=== PATIENT | female | born 1955 | race Caucasian/White ===

== ENCOUNTER → 2017-08-18 08:26 | Outpatient (CLI) | payer OTHER, MEDICAID, SELFPAY ==
[2017-08-18 09:33] LABS: Add Manual Diff / Slide Review NO; Basophils Percent Auto 0.6 % (0-2); Eosinophils Percent Auto 3.8 % (2-4); Hematocrit 39.6 % (36-46); Hemoglobin 13.2 g/dL (12.0-16.0); Lymphocytes Percent Auto 37.2 % (25-40); Mean Corpuscular HGB Conc 33.4 % (30-36); Mean Corpuscular Hemoglobin 28.4 PG (26-34); Mean Corpuscular Volume 85.1 fL (80-100); Monocytes Percent Auto 9.6 % (3-14); Neutrophils Absolute Auto 3100 /uL (3000-5900); Neutrophils Percent Auto 48.8 % (50-75); Platelet Count 222 X10^3/uL (150-400); Red Blood Cell Count 4.65 X10^6/uL (4.0-5.2); Red Cell Distribution Width 14.3 % (11.6-14.8); White Blood Cell Count 6.3 X10^3/uL (4.5-11.0)
[2017-08-18 09:49] LABS: Alanine Aminotransferase 28 IU/L (9-52); Albumin 4.5 g/dL (3.5-5.0); Albumin Globulin Ratio 1.3 (1.0-2.8); Alkaline Phosphatase 70 U/L (38-126); Aspartate Aminotransferase 29 IU/L (14-36); BUN Creatinine Ratio 16.3 (6-22); Bilirubin Total 0.6 mg/dL (0.2-1.3); Blood Urea Nitrogen 13 mg/dL (7-17); Calcium 9.8 mg/dL (8.4-10.2); Carbon Dioxide 32 mmol/L (22-32); Chloride 102 mmol/L (98-107); Cholesterol 196 mg/dL (140-199); Estimated Glomerular Filt Rate > 60.0 mL/min (>60); Globulin 3.4 g/dL (1.7-4.1); Glucose 90 mg/dL (80-110); HDL Cholesterol 67 mg/dL (40-60); HEMOLYSIS < 15 (0-50); LDL Cholesterol Calculated 120 mg/dL (<100); Potassium 4.7 mmol/L (3.4-5.1); Sodium 142 mmol/L (137-145); Total Protein 7.9 g/dL (6.3-8.2); Triglycerides 46 mg/dL (35-150)
[2017-08-18 09:51] LABS: HEMOLYSIS < 15 (0-50); Iron 74 ug/dL (37-170)
[2017-08-18 09:56] LABS: Hemoglobin A1C% w Est Avg Glu 5.6 % (4.0-6.0)
[2017-08-18 10:02] LABS: Percent Iron Saturation 22 % (15-50); Total Iron Binding Capacity 331 ug/mL (265-497); Transferrin 260 mg/dL (206-381)
[2017-08-18 10:05] LABS: Free T4, Direct Thyroxine 1.04 ng/dL (0.78-2.19)
[2017-08-18 10:18] LABS: Thyroid Stimulating Hormone 3.58 uIU/mL (0.47-4.68)
[2017-08-18 10:22] LABS: Ferritin 46.6 ng/mL (11.1-264)
== END ==
PROVIDERS: PCP Physician Assistant; Visit Provider Physician Assistant
DX: R53.83 Other fatigue (principal); Z82.49 Family history of ischemic heart disease and other diseases of the circulatory system; Z83.2 Family history of diseases of the blood and blood-forming organs and certain disorders involving the immune mechanism; Z82.3 Family history of stroke
CPT/HCPCS: 36415; 80053; 80061; 82728; 83036; 83540; 83550; 84439; 84443; 85025

== ENCOUNTER → 2017-10-13 08:59 | Outpatient (CLI) | payer OTHER, MEDICAID, SELFPAY ==
--- NOTE | 2017-10-13 09:00 | DI.RAD.S_ITS ---
PROCEDURE: XR CHEST 2V INDICATIONS: cough TECHNIQUE: 2 views of the chest were acquired. COMPARISON: None. FINDINGS: Surgical changes and devices: None. Lungs and pleura: No pleural effusions or pneumothorax. Lungs are clear. Mediastinum: Mediastinal contours are normal. Heart size is normal. Bones and chest wall: No suspicious bony abnormalities. Soft tissues appear unremarkable. IMPRESSION: No acute cardiopulmonary abnormality Dictated by: Obie Rogers M.D. on 10/13/2017 at 9:19 Approved by: Obie Rogers M.D. on 10/13/2017 at 9:20
== END ==
PROVIDERS: Family Provider Physician Assistant; PCP Physician Assistant; Visit Provider Physician Assistant
DX: R05 Cough (principal)
CPT/HCPCS: 71046

== ENCOUNTER 2024-08-16 11:30 | Outpatient (RCR) | payer MEDICARE, SELFPAY ==
--- NOTE | 2024-06-06 16:44 | PT.OIE ---
Current Diagnoses Pelvic muscle wasting (06/06/24) Other female genital prolapse (06/06/24) Urgency of urination (06/06/24) Past Medical History (This Medical Record has been edited. Action required.) Dermatitis (Unknown) Herpes simplex (Unknown) Hyperlipidemia (Unknown) Osteopenia (~2012) Vitamin D deficiency (Unknown) Visit Care Team Role Provider Type Yue Al DO Family Provider Non-Staff Primary Care Provider Specialty: Medical Address: [address] [place] [address], [phone] Email: Linda Allen MD Attending Provider Physician Referring Provider Specialty: Gynecology IT SYSTEMS MANAGER Obstetrics Address: [address] [place] [address], [id number] Email: [email or web address] Physical Therapy Initial Evaluation PT-OP-A Visit Information Start: 06/06/24 09:43 Freq: Status: Active Protocol: Document 06/06/24 09:45 [facility] (Rec: 06/06/24 16:44 [facility] [id number]) Out-Patient Physical Therapy Visit Information Visit Information Visit Type Initial Evaluation Visit Start Time 09:00 Visit Stop Time 09:45 Visit Number 1 Evaluation Information Evaluation Date 06/06/24 PT-OP-B Current Condition Start: 06/06/24 09:43 Freq: Status: Active Protocol: Document 06/06/24 09:47 [facility] (Rec: 06/06/24 10:08 [facility] [id number]) Current Condition History of Current Condition Onset Date 2 years ago Current Complaints pelvic organ prolapse History of Current Condition pt notes she has started vaginal estrogen x 2 weeks and she can tell a difference already two years ago she felt like she had a UTI and she went and got checked but it wasnt a UTI she was evaluated and it was noted she had a small bladder prolapse. Symptoms then seemed to decrease. Then again this last year she began feeling symptoms again of UTI and she was diagnosed with a prolapse She does functional fitness at the [facility] and yoga but has currently stopped her yoga as she feels she needs increased strenght for this history of 4 vaginal childbirths. S Future Testing and Treatments Planned he PT-OP-C Subjective Start: 06/06/24 09:43 Freq: Status: Active Protocol: Document 06/06/24 09:45 [facility] (Rec: 06/06/24 16:44 [facility] [id number]) Patient Questionnaires Pelvic Pain and Urgency/Frequency Patient Symptom Scale Pelvic Pain Score 1 PT-OP-F Manual Assessment Start: 06/06/24 09:43 Freq: Status: Active Protocol: Document 06/06/24 09:45 [facility] (Rec: 06/06/24 16:44 [facility] [id number]) Manual Assessments Soft Tissue Assessment Soft Tissue Mobility Assessment guarding at the left lateral wall of the levator ani PT-OP-I Pelvic Floor Start: 06/06/24 09:43 Freq: Status: Active Protocol: Document 06/06/24 09:45 [facility] (Rec: 06/06/24 16:44 [facility] [id number]) Pelvic Floor Assessment Urine Pelvic Floor Surgery No Urinary Symptoms Urge Sensation,Prolapse, Incomplete Emptying Leakage Size Small Leakage Cause Cough,Urge Other Leakage Causes small amounts of leakage with strong cough or sneeze or sudden urge Pelvic Clock Pelvic Clock 12-3 Atrophy Pelvic Clock 3-6 Atrophy,Tightness Pelvic Clock 6-9 Atrophy Pelvic Clock 9-12 Atrophy Prolapse Cystocele Grade 2 Rectocele Grade 2 Contraction Ability Voluntary Contraction Weak Voluntary Relaxation Weak Manual Muscle Testing Left 2 Manual Muscle Testing Right 2 Manual Muscle Testing Anterior 1 Manual Muscle Testing Posterior 2 Muscle Endurance (Seconds) 5 Comments Pelvic Floor Comments pt has difficulty relaxing the left lateral wall of the levator ani PT-OP-M Strength Start: 06/06/24 09:43 Freq: Status: Active Protocol: Document 06/06/24 09:45 [facility] (Rec: 06/06/24 16:44 [facility] [id number]) Trunk Strength Trunk Manual Muscle Testing Core Stabilization pt is able to facilitate a contraction of the TA is supine PT-OP-Q Treatments Start: 06/06/24 09:47 Freq: Status: Active Protocol: Document 06/06/24 09:45 [facility] (Rec: 06/06/24 16:44 [facility] [id number]) Therapeutic Exercises Supine Exercises modified squat stretch Reps/Minutes hold 1 min happy baby stretch Reps/Minutes hold 1 min hookling clam shells with Theraband Reps/Minutes level 2 2 x 10 reps supine ball squeeze with pelvic floor contraction Reps/Minutes 10 reps holding 5 seconds and resting 10 seconds PT-OP-T Assessment and Plan Start: 06/06/24 09:43 Freq: Status: Active Protocol: Document 06/06/24 09:45 [facility] (Rec: 06/06/24 16:44 [facility] [id number]) Physical Therapy Assessment Rehab Potential Rehabilitation Potential Excellent Evaluation Complexity Number of Personal Factors/Comorbidities 1-2 Number of Body Systems Impaired 3 Clinical Presentation at Evaluation Evolving Impairments Impairments Activity Tolerance,Functional Activities,Soft Tissue Mobility,Strength,Tone Goals 3 Impairment patient lacks a home program for pelvic floor strengthening . General Assembler Installer Goal (LTG) Dee is independent with a HEP for pelvic floor strengthening LTG Duration 8 weeks 2 Impairment Decreased pelvic floor endurance Short Term Goal (STG) Dee is able to sustain a pelvic floor contraction in supine x 10 seconds STG Duration 5 weeks General Assembler Installer Goal (LTG) Dee is able to sustain a pelvic floor contraction in standing x 5 seconds LTG Duration 8 weeks 1 Impairment pelvic floor weakness General Assembler Installer Goal (LTG) Dee presents with overall improved strength of the pelvic floor and has improved recruitment of the anterior wall of the levator ani. LTG Duration 8 weeks Assessment Summary Assessment Dee is a 68 year old female referred to PT for pelvic floor strengthening with cystocele and rectocele and vaginal atrophy. She has been using estrogen cream the past 2 weeks and does feel like this has really helped her tissues. She notes it is not something she wishes to continue using for long duration. She describes symptoms of UTI but when cultured there is no infection . Dee is considering surgery but would like to try strengthening first. With exam there is vaginal atrophy present. She is able to contract all dover of the levator ani but is weakest in the anterior wall. She tests 1/5 MMT for the anterior wall and 2/5 MMT for lateral and posterior dover. She has difficulty relaxing the left lateral wall of the levator ani and she notes she has had hip tightness on the left side . She is limited with the endurance holds of her pelvic floor. Dee is a good candidate for PT working towards improved strength and endurance of the pelvic floor for improved support of the pelvic organs. Physical Therapy Plan Frequency and Duration Frequency of Treatment 1x/Week Duration of treatment (weeks) 8 Plan of Care Start Date 06/06/24 Plan of Care End Date 08/01/24 Therapeutic Interventions Therapeutic Interventions Home Exercise Program, Neuromuscular Re-education, Patient/Caregiver Education, Self-Care/Home Management, Therapeutic Exercises Modalities Biofeedback Next Visit Focus/Plan Next Note Type Treatment Note Next Visit Plan pelvic floor strengthen and endurance training
--- NOTE | 2024-06-06 16:45 | PT.OPPOC ---
Physical, Occupational & Speech Therapy At [facility] Current Diagnoses Pelvic muscle wasting (06/06/24) Other female genital prolapse (06/06/24) Urgency of urination (06/06/24) Visit Care Team Role Provider Type Yue Al DO Family Provider Non-Staff Primary Care Provider Specialty: Medical Address: [address] [place] [address], [phone] Email: Linda Allen MD Attending Provider Physician Referring Provider Specialty: Gynecology BRIEFCASE SEWER Obstetrics Address: [address] [place] [address], [id number] Email: [email or web address] Plan Of Care PT-OP-B Current Condition Start: 06/06/24 09:43 Freq: Status: Active Protocol: Document 06/06/24 09:47 [facility] (Rec: 06/06/24 10:08 [facility] [id number]) Current Condition History of Current Condition Onset Date 2 years ago Current Complaints pelvic organ prolapse History of Current Condition pt notes she has started vaginal estrogen x 2 weeks and she can tell a difference already two years ago she felt like she had a UTI and she went and got checked but it wasn't a UTI she was evaluated and it was noted she had a small bladder prolapse. Symptoms then seemed to decrease. Then again this last year she began feeling symptoms again of UTI and she was diagnosed with a prolapse She does functional fitness at the [facility] and yoga but has currently stopped her yoga as she feels she needs increased strength for this history of 4 vaginal childbirths. S Future Testing and Treatments Planned he PT-OP-T Assessment and Plan Start: 06/06/24 09:43 Freq: Status: Active Protocol: Document 06/06/24 09:45 [facility] (Rec: 06/06/24 16:44 [facility] [id number]) Physical Therapy Assessment Rehab Potential Rehabilitation Potential Excellent Evaluation Complexity Number of Personal Factors/Comorbidities 1-2 Number of Body Systems Impaired 3 Clinical Presentation at Evaluation Evolving Impairments Impairments Activity Tolerance,Functional Activities,Soft Tissue Mobility,Strength,Tone Goals 3 Impairment patient lacks a home program for pelvic floor strengthening . Fish Seiner Goal (LTG) Dee is independent with a HEP for pelvic floor strengthening LTG Duration 8 weeks 2 Impairment Decreased pelvic floor endurance Short Term Goal (STG) Dee is able to sustain a pelvic floor contraction in supine x 10 seconds STG Duration 5 weeks Fish Seiner Goal (LTG) Dee is able to sustain a pelvic floor contraction in standing x 5 seconds LTG Duration 8 weeks 1 Impairment pelvic floor weakness Fish Seiner Goal (LTG) Dee presents with overall improved strength of the pelvic floor and has improved recruitment of the anterior wall of the levator ani. LTG Duration 8 weeks Assessment Summary Assessment Dee is a 68 year old female referred to PT for pelvic floor strengthening with cystocele and rectocele and vaginal atrophy. She has been using estrogen cream the past 2 weeks and does feel like this has really helped her tissues. She notes it is not something she wishes to continue using for long duration. She describes symptoms of UTI but when cultured there is no infection . Dee is considering surgery but would like to try strengthening first. With exam there is vaginal atrophy present. She is able to contract all dover of the levator ani but is weakest in the anterior wall. She tests 1/5 MMT for the anterior wall and 2/5 MMT for lateral and posterior dover. She has difficulty relaxing the left lateral wall of the levator ani and she notes she has had hip tightness on the left side . She is limited with the endurance holds of her pelvic floor. Dee is a good candidate for PT working towards improved strength and endurance of the pelvic floor for improved support of the pelvic organs. Physical Therapy Plan Frequency and Duration Frequency of Treatment 1x/Week Duration of treatment (weeks) 8 Plan of Care Start Date 06/06/24 Plan of Care End Date 08/01/24 Therapeutic Interventions Therapeutic Interventions Home Exercise Program, Neuromuscular Re-education, Patient/Caregiver Education, Self-Care/Home Management, Therapeutic Exercises Modalities Biofeedback Next Visit Focus/Plan Next Note Type Treatment Note Next Visit Plan pelvic floor strengthen and endurance training Plan of Care Dates Plan of Care Start Date 06/06/24 Plan of Care End Date 08/01/24 Electronically Signed by: Sharon Keys, PT 06/06/24 [id number] If you are in agreement with this Plan of Care, please return a signed and dated copy. I have reviewed this Plan of Care and certify that the skilled therapy services above are required to meet the patient?s needs. Physician Signature Date Printed Name and Credentials Clinical Instructor Signature Printed Name and Credentials
--- NOTE | 2024-06-13 16:16 | PT.OTN ---
Current Diagnoses Pelvic muscle wasting (06/13/24) Other female genital prolapse (06/13/24) Urgency of urination (06/13/24) Physical Therapy Treatment Note PT-OP-A Visit Information Start: 06/06/24 09:43 Freq: Status: Active Protocol: Document 06/13/24 09:46 [facility] (Rec: 06/13/24 10:33 [facility] [id number]) Out-Patient Physical Therapy Visit Information Visit Information Visit Type Treatment Note Visit Start Time 09:45 Visit Stop Time 10:30 Visit Number 2 Evaluation Information Evaluation Date 06/06/24 PT-OP-B Current Condition Start: 06/06/24 09:43 Freq: Status: Active Protocol: Document 06/06/24 09:47 [facility] (Rec: 06/06/24 10:08 [facility] [id number]) Current Condition History of Current Condition Onset Date 2 years ago Current Complaints pelvic organ prolapse History of Current Condition pt notes she has started vaginal estrogen x 2 weeks and she can tell a difference already two years ago she felt like she had a UTI and she went and got checked but it wasnt a UTI she was evaluated and it was noted she had a small bladder prolapse. Symptoms then seemed to decrease. Then again this last year she began feeling symptoms again of UTI and she was diagnosed with a prolapse She does functional fitness at the [facility] and yoga but has currently stopped her yoga as she feels she needs increased strenght for this history of 4 vaginal childbirths. S Future Testing and Treatments Planned he PT-OP-C Subjective Start: 06/06/24 09:43 Freq: Status: Active Protocol: Document 06/13/24 09:46 [facility] (Rec: 06/13/24 10:33 [facility] [id number]) OP-PT Subjective Patient Comments Patient Comments pt notes that her left hip is tighter too and she has been doing her exercises at home trying to work on the relaxation as much as the contraction PT-OP-F Manual Assessment Start: 06/06/24 09:43 Freq: Status: Active Protocol: Document 06/06/24 09:45 [facility] (Rec: 06/06/24 16:44 [facility] [id number]) Manual Assessments Soft Tissue Assessment Soft Tissue Mobility Assessment guarding at the left lateral wall of the levator ani PT-OP-I Pelvic Floor Start: 06/06/24 09:43 Freq: Status: Active Protocol: Document 06/06/24 09:45 [facility] (Rec: 06/06/24 16:44 [facility] [id number]) Pelvic Floor Assessment Urine Pelvic Floor Surgery No Urinary Symptoms Urge Sensation,Prolapse, Incomplete Emptying Leakage Size Small Leakage Cause Cough,Urge Other Leakage Causes small amounts of leakage with strong cough or sneeze or sudden urge Pelvic Clock Pelvic Clock 12-3 Atrophy Pelvic Clock 3-6 Atrophy,Tightness Pelvic Clock 6-9 Atrophy Pelvic Clock 9-12 Atrophy Prolapse Cystocele Grade 2 Rectocele Grade 2 Contraction Ability Voluntary Contraction Weak Voluntary Relaxation Weak Manual Muscle Testing Left 2 Manual Muscle Testing Right 2 Manual Muscle Testing Anterior 1 Manual Muscle Testing Posterior 2 Muscle Endurance (Seconds) 5 Comments Pelvic Floor Comments pt has difficulty relaxing the left lateral wall of the levator ani PT-OP-M Strength Start: 06/06/24 09:43 Freq: Status: Active Protocol: Document 06/06/24 09:45 [facility] (Rec: 06/06/24 16:44 [facility] [id number]) Trunk Strength Trunk Manual Muscle Testing Core Stabilization pt is able to facilitate a contraction of the TA is supine PT-OP-Q Treatments Start: 06/06/24 09:47 Freq: Status: Active Protocol: Document 06/13/24 09:46 [facility] (Rec: 06/13/24 10:33 [facility] [id number]) Therapeutic Exercises Supine Exercises pelvic floor isolations Reps/Minutes 10 reps holding 10 sec and realx x10 Comments average 3.6 uv 8 uv max modified squat stretch Reps/Minutes hold 1 min happy baby stretch Reps/Minutes hold 1 min hookling clam shells with Theraband Reps/Minutes level 2 2 x 10 reps supine ball squeeze with pelvic floor contraction Supine Exercise Name pt able to feel the front of her pelvic floor Reps/Minutes 10 sec on 10 sec off 10 reps Comments average 9.2 and max of 17.8 PT-OP-T Assessment and Plan Start: 06/06/24 09:43 Freq: Status: Active Protocol: Document 06/13/24 16:10 [facility] (Rec: 06/13/24 16:15 [facility] [id number]) Physical Therapy Assessment Assessment Summary Assessment Dee was able to do the EMG biofeedback today and was able to demonstrate relaxing to baseline, she presents with limited pelvic floor endurance and would benefit from continued PT focus on pelvic floor strengthening and endurance training Physical Therapy Plan Frequency and Duration Frequency of Treatment 1x/Week Duration of treatment (weeks) 8 Plan of Care Start Date 06/06/24 Plan of Care End Date 08/01/24 Therapeutic Interventions Therapeutic Interventions Home Exercise Program, Neuromuscular Re-education, Patient/Caregiver Education, Self-Care/Home Management, Therapeutic Exercises Modalities Biofeedback Next Visit Focus/Plan Next Note Type Treatment Note Next Visit Plan review all exercises and continue with pelvic floor strength and endurance training
--- NOTE | 2024-06-20 16:34 | PT.OTN ---
Current Diagnoses Pelvic muscle wasting (06/20/24) Other female genital prolapse (06/20/24) Urgency of urination (06/20/24) Physical Therapy Treatment Note PT-OP-A Visit Information Start: 06/06/24 09:43 Freq: Status: Active Protocol: Document 06/20/24 09:46 [facility] (Rec: 06/20/24 10:43 [facility] [id number]) Out-Patient Physical Therapy Visit Information Visit Information Visit Type Treatment Note Visit Start Time 09:45 Visit Stop Time 10:30 Visit Number 3 PT-OP-B Current Condition Start: 06/06/24 09:43 Freq: Status: Active Protocol: Document 06/06/24 09:47 [facility] (Rec: 06/06/24 10:08 [facility] [id number]) Current Condition History of Current Condition Onset Date 2 years ago Current Complaints pelvic organ prolapse History of Current Condition pt notes she has started vaginal estrogen x 2 weeks and she can tell a difference already two years ago she felt like she had a UTI and she went and got checked but it wasnt a UTI she was evaluated and it was noted she had a small bladder prolapse. Symptoms then seemed to decrease. Then again this last year she began feeling symptoms again of UTI and she was diagnosed with a prolapse She does functional fitness at the [facility] and yoga but has currently stopped her yoga as she feels she needs increased strenght for this history of 4 vaginal childbirths. S Future Testing and Treatments Planned he PT-OP-C Subjective Start: 06/06/24 09:43 Freq: Status: Active Protocol: Document 06/20/24 09:46 [facility] (Rec: 06/20/24 10:43 [facility] [id number]) OP-PT Subjective Patient Comments Patient Comments pt notes she had a episode on wednesday when she was at lunch with a friend and went to use the bathroom that as she got close to the toilet she felt that she wasn't going to make it to the toilet in time, it happened 3 times that day but it hasn't happened since. PT-OP-F Manual Assessment Start: 06/06/24 09:43 Freq: Status: Active Protocol: Document 06/06/24 09:45 [facility] (Rec: 06/06/24 16:44 [facility] [id number]) Manual Assessments Soft Tissue Assessment Soft Tissue Mobility Assessment guarding at the left lateral wall of the levator ani PT-OP-I Pelvic Floor Start: 06/06/24 09:43 Freq: Status: Active Protocol: Document 06/06/24 09:45 [facility] (Rec: 06/06/24 16:44 [facility] [id number]) Pelvic Floor Assessment Urine Pelvic Floor Surgery No Urinary Symptoms Urge Sensation,Prolapse, Incomplete Emptying Leakage Size Small Leakage Cause Cough,Urge Other Leakage Causes small amounts of leakage with strong cough or sneeze or sudden urge Pelvic Clock Pelvic Clock 12-3 Atrophy Pelvic Clock 3-6 Atrophy,Tightness Pelvic Clock 6-9 Atrophy Pelvic Clock 9-12 Atrophy Prolapse Cystocele Grade 2 Rectocele Grade 2 Contraction Ability Voluntary Contraction Weak Voluntary Relaxation Weak Manual Muscle Testing Left 2 Manual Muscle Testing Right 2 Manual Muscle Testing Anterior 1 Manual Muscle Testing Posterior 2 Muscle Endurance (Seconds) 5 Comments Pelvic Floor Comments pt has difficulty relaxing the left lateral wall of the levator ani PT-OP-M Strength Start: 06/06/24 09:43 Freq: Status: Active Protocol: Document 06/06/24 09:45 [facility] (Rec: 06/06/24 16:44 [facility] [id number]) Trunk Strength Trunk Manual Muscle Testing Core Stabilization pt is able to facilitate a contraction of the TA is supine PT-OP-Q Treatments Start: 06/06/24 09:47 Freq: Status: Active Protocol: Document 06/20/24 09:46 [facility] (Rec: 06/20/24 10:43 [facility] [id number]) Therapeutic Exercises Supine Exercises modified squat stretch Reps/Minutes hold 1 min happy baby stretch Reps/Minutes hold 1 min supine ball squeeze with pelvic floor contraction Reps/Minutes 10 seconds on 10 seconds off x 10 reps Comments max of 11.7 PT-OP-T Assessment and Plan Start: 06/06/24 09:43 Freq: Status: Active Protocol: Document 06/20/24 09:46 [facility] (Rec: 06/20/24 10:43 [facility] [id number]) Physical Therapy Assessment Goals 3 Impairment patient lacks a home program for pelvic floor strengthening . Automation Qa Lead Goal (LTG) Dee is independent with a HEP for pelvic floor strengthening LTG Duration 8 weeks 2 Impairment Decreased pelvic floor endurance Short Term Goal (STG) Dee is able to sustain a pelvic floor contraction in supine x 10 seconds STG Duration 5 weeks Senior Care Goal (LTG) Dee is able to sustain a pelvic floor contraction in standing x 5 seconds LTG Duration 8 weeks 1 Impairment pelvic floor weakness Automation Qa Lead Goal (LTG) Dee presents with overall improved strength of the pelvic floor and has improved recruitment of the anterior wall of the levator ani. LTG Duration 8 weeks Assessment Summary Assessment I talked with Dee today about the sudden feeling of urgency on the way to the bathroom as it can be due to just starting these pelvic floor exercises and that her muscles are shakey because of that. We discussed making sure she is not over doing her exercises and she feels she may have over focused on the anterior part and it may have over fatigued this area. She hasn't had a episode of this since Wednesday. Physical Therapy Plan Frequency and Duration Frequency of Treatment 1x/Week Duration of treatment (weeks) 8 Plan of Care Start Date 06/06/24 Plan of Care End Date 08/01/24 Therapeutic Interventions Therapeutic Interventions Home Exercise Program, Neuromuscular Re-education, Patient/Caregiver Education, Self-Care/Home Management, Therapeutic Exercises Modalities Biofeedback Next Visit Focus/Plan Next Note Type Treatment Note Next Visit Plan review all pelvic floor exercises, progresses to eccentric control and coordination with templates next visit
--- NOTE | 2024-06-27 10:30 | PT.OTN ---
Current Diagnoses Pelvic muscle wasting (06/27/24) Other female genital prolapse (06/27/24) Urgency of urination (06/27/24) Physical Therapy Treatment Note PT-OP-A Visit Information Start: 06/06/24 09:43 Freq: Status: Active Protocol: Document 06/27/24 09:50 SP (Rec: 06/27/24 10:37 SP Laptop) Out-Patient Physical Therapy Visit Information Visit Information Visit Type Treatment Note Visit Start Time 09:50 Visit Stop Time 10:30 Visit Number 4 Number of AUTO REBUILDER Visits 1 Evaluation Information Evaluation Date 06/06/24 PT-OP-B Current Condition Start: 06/06/24 09:43 Freq: Status: Active Protocol: Document 06/06/24 09:47 [facility] (Rec: 06/06/24 10:08 [facility] [id number]) Current Condition History of Current Condition Onset Date 2 years ago Current Complaints pelvic organ prolapse History of Current Condition pt notes she has started vaginal estrogen x 2 weeks and she can tell a difference already two years ago she felt like she had a UTI and she went and got checked but it wasnt a UTI she was evaluated and it was noted she had a small bladder prolapse. Symptoms then seemed to decrease. Then again this last year she began feeling symptoms again of UTI and she was diagnosed with a prolapse [facility] and [facility] but has currently stopped her yoga as she feels she needs increased strenght for this history of 4 vaginal childbirths. S Future Testing and Treatments Planned he PT-OP-C Subjective Start: 06/06/24 09:43 Freq: Status: Active Protocol: Document 06/27/24 09:50 SP (Rec: 06/27/24 10:37 SP Laptop) OP-PT Subjective Patient Comments Patient Comments Pt reports no leakage or urgency symptoms only in PT for focusing strengthening on PF, L hip more challenging. She reports does perform HEP laying down but also seated more than standing and finds more challenging. PT-OP-F Manual Assessment Start: 06/06/24 09:43 Freq: Status: Active Protocol: Document 06/06/24 09:45 [facility] (Rec: 06/06/24 16:44 [facility] [id number]) Manual Assessments Soft Tissue Assessment Soft Tissue Mobility Assessment guarding at the left lateral wall of the levator ani PT-OP-I Pelvic Floor Start: 06/06/24 09:43 Freq: Status: Active Protocol: Document 06/06/24 09:45 AMH (Rec: 06/06/24 16:44 [facility] [id number]) Pelvic Floor Assessment Urine Pelvic Floor Surgery No Urinary Symptoms Urge Sensation,Prolapse, Incomplete Emptying Leakage Size Small Leakage Cause Cough,Urge Other Leakage Causes small amounts of leakage with strong cough or sneeze or sudden urge Pelvic Clock Pelvic Clock 12-3 Atrophy Pelvic Clock 3-6 Atrophy,Tightness Pelvic Clock 6-9 Atrophy Pelvic Clock 9-12 Atrophy Prolapse Cystocele Grade 2 Rectocele Grade 2 Contraction Ability Voluntary Contraction Weak Voluntary Relaxation Weak Manual Muscle Testing Left 2 Manual Muscle Testing Right 2 Manual Muscle Testing Anterior 1 Manual Muscle Testing Posterior 2 Muscle Endurance (Seconds) 5 Comments Pelvic Floor Comments pt has difficulty relaxing the left lateral wall of the levator ani PT-OP-M Strength Start: 06/06/24 09:43 Freq: Status: Active Protocol: Document 06/06/24 09:45 AM[facility] (Rec: 06/06/24 16:44 [facility] [id number]) Trunk Strength Trunk Manual Muscle Testing Core Stabilization pt is able to facilitate a contraction of the TA is supine PT-OP-Q Treatments Start: 06/06/24 09:47 Freq: Status: Active Protocol: Document 06/27/24 09:50 SP (Rec: 06/27/24 10:37 SP Laptop) Therapeutic Exercises Supine Exercises pelvic floor isolations Supine Exercise Name 1. Regular 2. Combination: Template Reps/Minutes 10 reps holding 10 sec and relax 10s, template x5 reps Comments average 4.1 uv 12.8 uv max, relax avg 7.1 supine ball squeeze with pelvic floor contraction Reps/Minutes 10 seconds on 10 seconds off x 10 reps Comments 9.0 avg, max of 17.3, avg rest 2.1 but laughing PT-OP-T Assessment and Plan Start: 06/06/24 09:43 Freq: Status: Active Protocol: Document 06/27/24 09:50 SP (Rec: 06/27/24 10:37 SP Laptop) Physical Therapy Assessment Goals 3 Impairment patient lacks a home program for pelvic floor strengthening . Half-Way Goal (LTG) Dee is independent with a HEP for pelvic floor strengthening LTG Duration 8 weeks 2 Impairment Decreased pelvic floor endurance Short Term Goal (STG) Dee is able to sustain a pelvic floor contraction in supine x 10 seconds STG Duration 5 weeks Half-Way Goal (LTG) Dee is able to sustain a pelvic floor contraction in standing x 5 seconds LTG Duration 8 weeks 1 Impairment pelvic floor weakness Mechanist Goal (LTG) Dee presents with overall improved strength of the pelvic floor and has improved recruitment of the anterior wall of the levator ani. LTG Duration 8 weeks Assessment Summary Assessment Pt demonstrated hookying improved PF contraction today with verbal cuing timing. She was challenged with template long holds and quick flicks patterning sequencing but improved with reps. Encourage to look at a various bar graphs and use of contract during elevation and relaxation during the declination. Future treatment neuromuscular feedback endurance hold seated and standing for support carryover against gravity for return to engagement activity progression. Physical Therapy Plan Frequency and Duration Frequency of Treatment 1x/Week Duration of treatment (weeks) 8 Plan of Care Start Date 06/06/24 Plan of Care End Date 08/01/24 Therapeutic Interventions Therapeutic Interventions Home Exercise Program, Neuromuscular Re-education, Patient/Caregiver Education, Self-Care/Home Management, Therapeutic Exercises Modalities Biofeedback Next Visit Focus/Plan Next Note Type Treatment Note Next Visit Plan Continue coordination with templates next visit. Trial pelvic floor exercises in various positions with neuromuscular feedback for self assessment, progresses to eccentric control and
--- NOTE | 2024-07-26 13:21 | PT.OTN ---
Current Diagnoses Pelvic muscle wasting (07/26/24) Other female genital prolapse (07/26/24) Urgency of urination (07/26/24) Physical Therapy Treatment Note PT-OP-A Visit Information Start: 06/06/24 09:43 Freq: Status: Active Protocol: Document 07/26/24 09:05 AMH (Rec: 07/26/24 09:08 AMH [id number]) Out-Patient Physical Therapy Visit Information Visit Information Visit Type Treatment Note Visit Start Time 09:05 Visit Stop Time 09:50 Visit Number 6 PT-OP-B Current Condition Start: 06/06/24 09:43 Freq: Status: Active Protocol: Document 06/06/24 09:47 AMH (Rec: 06/06/24 10:08 AM[facility] [id number]) Current Condition History of Current Condition Onset Date 2 years ago Current Complaints pelvic organ prolapse History of Current Condition pt notes she has started vaginal estrogen x 2 weeks and she can tell a difference already two years ago she felt like she had a UTI and she went and got checked but it wasnt a UTI she was evaluated and it was noted she had a small bladder prolapse. Symptoms then seemed to decrease. Then again this last year she began feeling symptoms again of UTI and she was diagnosed with a prolapse She does functional fitness at the [facility] and yoga but has currently stopped her yoga as she feels she needs increased strenght for this history of 4 vaginal childbirths. S Future Testing and Treatments Planned he PT-OP-C Subjective Start: 06/06/24 09:43 Freq: Status: Active Protocol: Document 07/26/24 09:05 AMH (Rec: 07/26/24 09:08 AM[facility] [id number]) OP-PT Subjective Patient Comments Patient Comments Dee notes she is having left sided anterior hip pain and it is making her SI joint ache. Overall she is doing much better with her pelvic floor and notes improved strength in her pelvic floor Patient Reported Progress Improving PT-OP-F Manual Assessment Start: 06/06/24 09:43 Freq: Status: Active Protocol: Document 06/06/24 09:45 AMH (Rec: 06/06/24 16:44 AM[facility] [id number]) Manual Assessments Soft Tissue Assessment Soft Tissue Mobility Assessment guarding at the left lateral wall of the levator ani PT-OP-I Pelvic Floor Start: 06/06/24 09:43 Freq: Status: Active Protocol: Document 06/06/24 09:45 AM[facility] (Rec: 06/06/24 16:44 [facility] [id number]) Pelvic Floor Assessment Urine Pelvic Floor Surgery No Urinary Symptoms Urge Sensation,Prolapse, Incomplete Emptying Leakage Size Small Leakage Cause Cough,Urge Other Leakage Causes small amounts of leakage with strong cough or sneeze or sudden urge Pelvic Clock Pelvic Clock 12-3 Atrophy Pelvic Clock 3-6 Atrophy,Tightness Pelvic Clock 6-9 Atrophy Pelvic Clock 9-12 Atrophy Prolapse Cystocele Grade 2 Rectocele Grade 2 Contraction Ability Voluntary Contraction Weak Voluntary Relaxation Weak Manual Muscle Testing Left 2 Manual Muscle Testing Right 2 Manual Muscle Testing Anterior 1 Manual Muscle Testing Posterior 2 Muscle Endurance (Seconds) 5 Comments Pelvic Floor Comments pt has difficulty relaxing the left lateral wall of the levator ani PT-OP-M Strength Start: 06/06/24 09:43 Freq: Status: Active Protocol: Document 06/06/24 09:45 AMH (Rec: 06/06/24 16:44 [facility] [id number]) Trunk Strength Trunk Manual Muscle Testing Core Stabilization pt is able to facilitate a contraction of the TA is supine PT-OP-Q Treatments Start: 06/06/24 09:47 Freq: Status: Active Protocol: Document 07/26/24 09:05 AMH (Rec: 07/26/24 09:39 [facility] [id number]) Therapeutic Exercises Supine Exercises bridges Supine Exercise Name bridges with cues to perform a posterior pelvic tilt first Side bilateral Reps/Minutes 3 pelvic floor isolations Reps/Minutes 10 seconds on and 10 seconds off Comments 11.8 max 26.4 Manual Therapy Treatment Consent Patient gave verbal consent for manual Yes treatment Manual Techniques MET left anterior pelvic rotation Body Position Hooklying Reps/Duration 5 reps holding 5 sec Comments good tolerance and equal leg length following treatment PT-OP-T Assessment and Plan Start: 06/06/24 09:43 Freq: Status: Active Protocol: Document 07/26/24 09:05 [facility] (Rec: 07/26/24 09:39 [facility] [id number]) Physical Therapy Assessment Rehab Potential Rehabilitation Potential Excellent Evaluation Complexity Number of Personal Factors/Comorbidities 1-2 Number of Body Systems Impaired 3 Clinical Presentation at Evaluation Evolving Impairments Impairments Activity Tolerance,Functional Activities,Soft Tissue Mobility,Strength,Tone Goals 3 Impairment patient lacks a home program for pelvic floor strengthening . Extractor Operator Solvent Process Goal (LTG) Dee is independent with a HEP for pelvic floor strengthening pt reports she is working her pelvic floor a lot at home and is feeling she has more awareness now than she had. LTG Duration 8 weeks 2 Impairment Decreased pelvic floor endurance Short Term Goal (STG) Dee is able to sustain a pelvic floor contraction in supine x 10 seconds goal met STG Duration 5 weeks Extractor Operator Solvent Process Goal (LTG) Dee is able to sustain a pelvic floor contraction in standing x 5 seconds good progress LTG Duration 8 weeks 1 Impairment pelvic floor weakness Half-Way Goal (LTG) Dee presents with overall improved strength of the pelvic floor and has improved recruitment of the anterior wall of the levator ani. good progress LTG Duration 8 weeks Assessment Summary Assessment Dee presets with good improvement overall for her pelvic floor strength. She did present with a left rotated ilium today so I worked on pelvic balancing and she tolerated this well. With pelvic floor exercises she is demonstrating improvement with both strength as well as endurance. She has 2 visits left in PT to work towards more upright positioning and then she will be discharged to a [facility] Physical Therapy Plan Frequency and Duration Frequency of Treatment 1x/Week Duration of treatment (weeks) 8 Plan of Care Start Date 07/26/24 Plan of Care End Date 09/20/24 Therapeutic Interventions Therapeutic Interventions Gait Training,Manual Therapy, Neuromuscular Re-education, Patient/Caregiver Education, Therapeutic Exercises Modalities Biofeedback Next Visit Focus/Plan Next Note Type Treatment Note Next Visit Plan Recheck leg length and SI alignment, continue with Pelvic floor strength and endurance training moving into upright positions
--- NOTE | 2024-07-26 13:22 | PT.OPPOC ---
Physical, Occupational & Speech Therapy At [facility] Current Diagnoses Pelvic muscle wasting (07/26/24) Other female genital prolapse (07/26/24) Urgency of urination (07/26/24) Visit Care Team Role Provider Type Yue Al DO Family Provider Non-Staff Primary Care Provider Specialty: Medical Address: [address] [place] [address], [phone] Email: Linda Allen MD Attending Provider Physician Referring Provider Specialty: Gynecology JACK PRIZER Obstetrics Address: [address] [place] [address], [id number] Email: [email or web address] Plan Of Care PT-OP-B Current Condition Start: 06/06/24 09:43 Freq: Status: Active Protocol: Document 06/06/24 09:47 AMH (Rec: 06/06/24 10:08 [facility] [id number]) Current Condition History of Current Condition Onset Date 2 years ago Current Complaints pelvic organ prolapse History of Current Condition pt notes she has started vaginal estrogen x 2 weeks and she can tell a difference already two years ago she felt like she had a UTI and she went and got checked but it wasnt a UTI she was evaluated and it was noted she had a small bladder prolapse. Symptoms then seemed to decrease. Then again this last year she began feeling symptoms again of UTI and she was diagnosed with a prolapse She does functional fitness at the [facility] and yoga but has currently stopped her yoga as she feels she needs increased strenght for this history of 4 vaginal childbirths. S Future Testing and Treatments Planned he PT-OP-T Assessment and Plan Start: 06/06/24 09:43 Freq: Status: Active Protocol: Document 07/26/24 09:05 AMH (Rec: 07/26/24 09:39 [facility] [id number]) Physical Therapy Assessment Rehab Potential Rehabilitation Potential Excellent Evaluation Complexity Number of Personal Factors/Comorbidities 1-2 Number of Body Systems Impaired 3 Clinical Presentation at Evaluation Evolving Impairments Impairments Activity Tolerance,Functional Activities,Soft Tissue Mobility,Strength,Tone Goals 3 Impairment patient lacks a home program for pelvic floor strengthening . Snf Goal (LTG) Dee is independent with a HEP for pelvic floor strengthening pt reports she is working her pelvic floor a lot at home and is feeling she has more awareness now than she had. LTG Duration 8 weeks 2 Impairment Decreased pelvic floor endurance Short Term Goal (STG) Dee is able to sustain a pelvic floor contraction in supine x 10 seconds goal met STG Duration 5 weeks Scale Operator Goal (LTG) Dee is able to sustain a pelvic floor contraction in standing x 5 seconds good progress LTG Duration 8 weeks 1 Impairment pelvic floor weakness Scale Operator Goal (LTG) Dee presents with overall improved strength of the pelvic floor and has improved recruitment of the anterior wall of the levator ani. good progress LTG Duration 8 weeks Assessment Summary Assessment Dee presets with good improvement overall for her pelvic floor strength. She did present with a left rotated ilium today so I worked on pelvic balancing and she tolerated this well. With pelvic floor exercises she is demonstrating improvement with both strength as well as endurance. She has 2 visits left in PT to work towards more upright positioning and then she will be discharged to a [facility] Physical Therapy Plan Frequency and Duration Frequency of Treatment 1x/Week Duration of treatment (weeks) 8 Plan of Care Start Date 07/26/24 Plan of Care End Date 09/20/24 Therapeutic Interventions Therapeutic Interventions Gait Training,Manual Therapy, Neuromuscular Re-education, Patient/Caregiver Education, Therapeutic Exercises Modalities Biofeedback Next Visit Focus/Plan Next Note Type Treatment Note Next Visit Plan Recheck leg length and SI alignment, continue with Pelvic floor strength and endurance training moving into upright positions Plan of Care Dates Plan of Care Start Date 07/26/24 Plan of Care End Date 09/20/24 Electronically Signed by: Sharon Keys, PT 07/26/24 1687 If you are in agreement with this Plan of Care, please return a signed and dated copy. I have reviewed this Plan of Care and certify that the skilled therapy services above are required to meet the patient?s needs. Physician Signature Date Printed Name and Credentials Clinical Instructor Signature Printed Name and Credentials
--- NOTE | 2024-08-16 12:36 | PT.OTN ---
Current Diagnoses Pelvic muscle wasting (08/16/24) Other female genital prolapse (08/16/24) Urgency of urination (08/16/24) Physical Therapy Treatment Note PT-OP-A Visit Information Start: 06/06/24 09:43 Freq: Status: Active Protocol: Document 08/16/24 11:29 [facility] (Rec: 08/16/24 12:35 [facility] [id number]) Out-Patient Physical Therapy Visit Information Visit Information Visit Type Treatment Note Visit Note 1 of 8 allowed Visit Start Time 11:30 Visit Stop Time 12:15 Visit Number 1 PT-OP-B Current Condition Start: 06/06/24 09:43 Freq: Status: Active Protocol: Document 06/06/24 09:47 AMH (Rec: 06/06/24 10:08 [facility] [id number]) Current Condition History of Current Condition Onset Date 2 years ago Current Complaints pelvic organ prolapse History of Current Condition pt notes she has started vaginal estrogen x 2 weeks and she can tell a difference already two years ago she felt like she had a UTI and she went and got checked but it wasnt a UTI she was evaluated and it was noted she had a small bladder prolapse. Symptoms then seemed to decrease. Then again this last year she began feeling symptoms again of UTI and she was diagnosed with a prolapse She does functional fitness at the [facility] and yoga but has currently stopped her yoga as she feels she needs increased strenght for this history of 4 vaginal childbirths. S Future Testing and Treatments Planned he PT-OP-C Subjective Start: 06/06/24 09:43 Freq: Status: Active Protocol: Document 08/16/24 11:29 AMH (Rec: 08/16/24 12:35 [facility] [id number]) OP-PT Subjective Patient Comments Patient Comments pt has had a UTI and she isn't sure why, she isn't sure why she got she is going to go on corn silk tea she is working on her pelvic floor PT-OP-F Manual Assessment Start: 06/06/24 09:43 Freq: Status: Active Protocol: Document 06/06/24 09:45 AMH (Rec: 06/06/24 16:44 [facility] [id number]) Manual Assessments Soft Tissue Assessment Soft Tissue Mobility Assessment guarding at the left lateral wall of the levator ani PT-OP-I Pelvic Floor Start: 06/06/24 09:43 Freq: Status: Active Protocol: Document 06/06/24 09:45 AMH (Rec: 06/06/24 16:44 [facility] [id number]) Pelvic Floor Assessment Urine Pelvic Floor Surgery No Urinary Symptoms Urge Sensation,Prolapse, Incomplete Emptying Leakage Size Small Leakage Cause Cough,Urge Other Leakage Causes small amounts of leakage with strong cough or sneeze or sudden urge Pelvic Clock Pelvic Clock 12-3 Atrophy Pelvic Clock 3-6 Atrophy,Tightness Pelvic Clock 6-9 Atrophy Pelvic Clock 9-12 Atrophy Prolapse Cystocele Grade 2 Rectocele Grade 2 Contraction Ability Voluntary Contraction Weak Voluntary Relaxation Weak Manual Muscle Testing Left 2 Manual Muscle Testing Right 2 Manual Muscle Testing Anterior 1 Manual Muscle Testing Posterior 2 Muscle Endurance (Seconds) 5 Comments Pelvic Floor Comments pt has difficulty relaxing the left lateral wall of the levator ani PT-OP-M Strength Start: 06/06/24 09:43 Freq: Status: Active Protocol: Document 06/06/24 09:45 AM[facility] (Rec: 06/06/24 16:44 [facility] [id number]) Trunk Strength Trunk Manual Muscle Testing Core Stabilization pt is able to facilitate a contraction of the TA is supine PT-OP-Q Treatments Start: 06/06/24 09:47 Freq: Status: Active Protocol: Document 08/16/24 11:29 AMH (Rec: 08/16/24 12:35 [facility] [id number]) Therapeutic Exercises Sitting Exercises sitting diaphragmatic breathing Reps/Minutes cues for diaphragmatic breathing to relax the pelvic floor with a inhale sitting with pelvic floor stretch Sitting Exercise Name worked on pelvic floor contract relax from this position Comments cues to relax at the pelvic floor and spread the sitting bones Therapeutic Activity Therapeutic Activity pelvic floor relaxed awareness in sitting Comments time was spent working on relaxed awareness of the pelvic floor in sitting and adding in diaphragmatic breath work for sitting Self-Care/Home Management Treatment Education Patient Education Home Exercise Program Other Education education on use of a small ball to sit on to help release the pelvic floor, diaphragmatic breath work in sitting and pelvic floor relaxed awareness. Time was spend discussing the UTI that Dee recently felt she suffered from and use of estrogen cream. PT-OP-T Assessment and Plan Start: 06/06/24 09:43 Freq: Status: Active Protocol: Document 08/16/24 11:29 [facility] (Rec: 08/16/24 12:35 [facility] [id number]) Physical Therapy Assessment Assessment Summary Assessment Emg biofeedback was not done today as Dee feels she is still irritated in her tissue from the UTi she suffered from last week. Time was spend discussing her symptoms and she feels she wasn't fully relaxing her pelvic floor. We tried seated pelvic floor positions working on breath work to coordination pelvic floor relaxation with a inhale . Dee tolerated this well . Physical Therapy Plan Frequency and Duration Frequency of Treatment 1x/Week Duration of treatment (weeks) 8 Plan of Care Start Date 07/26/24 Plan of Care End Date 09/20/24 Next Visit Focus/Plan Next Note Type Treatment Note Next Visit Plan Recheck leg length and SI alignment, continue with Pelvic floor strength and endurance training moving into upright positions, review diaphragmatic breathing next visit
--- NOTE | 2024-09-19 11:15 | PT.OPDS ---
Current Diagnoses Pelvic muscle wasting (08/16/24) Other female genital prolapse (08/16/24) Urgency of urination (08/16/24) Visit Care Team Role Provider Type Yue Al DO Family Provider Non-Staff Primary Care Provider Specialty: Medical Address: [facility] [place], [address] Email: Linda Allen MD Attending Provider Physician Referring Provider Specialty: Gynecology [employer] [facility] Address: [address] [place] [address], [id number] Email: [email or web address] Visit Number Visit Number 1 Discharge Summary PT-OP-B Current Condition Start: 06/06/24 09:43 Freq: Status: Active Protocol: Document 06/06/24 09:47 [facility] (Rec: 06/06/24 10:08 AMH [id number]) Current Condition History of Current Condition Onset Date 2 years ago Current Complaints pelvic organ prolapse History of Current pt notes she has started vaginal estrogen x 2 weeks and Condition she can tell a difference already two years ago she felt like she had a UTI and she went and got checked but it wasnt a UTI she was evaluated and it was noted she had a small bladder prolapse. Symptoms then seemed to decrease. Then again this last year she began feeling symptoms again of UTI and she was diagnosed with a prolapse She does functional fitness at the [facility] and yoga but has currently stopped her yoga as she feels she needs increased strenght for this history of 4 vaginal childbirths. S Future Testing and he Treatments Planned PT-OP-C Subjective Start: 06/06/24 09:43 Freq: Status: Active Protocol: Document 08/16/24 11:29 [facility] (Rec: 08/16/24 12:35 AMH [id number]) OP-PT Subjective Patient Comments Patient Comments pt has had a UTI and she isn't sure why, she isn't sure why she got she is going to go on corn silk tea she is working on her pelvic floor PT-OP-F Manual Assessment Start: 06/06/24 09:43 Freq: Status: Active Protocol: Document 06/06/24 09:45 AM[facility] (Rec: 06/06/24 16:44 AMH [id number]) Manual Assessments Soft Tissue Assessment Soft Tissue Mobility guarding at the left lateral wall of the levator ani Assessment PT-OP-I Pelvic Floor Start: 06/06/24 09:43 Freq: Status: Active Protocol: Document 06/06/24 09:45 AM[facility] (Rec: 06/06/24 16:44 AMH [id number]) Pelvic Floor Assessment Urine Pelvic Floor Surgery No Urinary Symptoms Urge Sensation,Prolapse,Incomplete Emptying Leakage Size Small Leakage Cause Cough,Urge Other Leakage Causes small amounts of leakage with strong cough or sneeze or sudden urge Pelvic Clock Pelvic Clock 12-3 Atrophy Pelvic Clock 3-6 Atrophy,Tightness Pelvic Clock 6-9 Atrophy Pelvic Clock 9-12 Atrophy Prolapse Cystocele Grade 2 Rectocele Grade 2 Contraction Ability Voluntary Weak Contraction Voluntary Relaxation Weak Manual Muscle 2 Testing Left Manual Muscle 2 Testing Right Manual Muscle 1 Testing Anterior Manual Muscle 2 Testing Posterior Muscle Endurance ( 5 Seconds) Comments Pelvic Floor pt has difficulty relaxing the left lateral wall of the Comments levator ani PT-OP-M Strength Start: 06/06/24 09:43 Freq: Status: Active Protocol: Document 06/06/24 09:45 AM[facility] (Rec: 06/06/24 16:44 AMH [id number]) Trunk Strength Trunk Manual Muscle Testing Core Stabilization pt is able to facilitate a contraction of the TA is supine PT-OP-T Assessment and Plan Start: 06/06/24 09:43 Freq: Status: Active Protocol: Document 09/19/24 11:12 AM[facility] (Rec: 09/19/24 11:14 AMH [id number]) Physical Therapy Assessment Goals 3 Impairment patient lacks a home program for pelvic floor strengthening. Usp Goal (LTG) Dee is independent with a HEP for pelvic floor strengthening pt reports she is working her pelvic floor a lot at home and is feeling she has more awareness now than she had. LTG Duration 8 weeks 2 Impairment Decreased pelvic floor endurance Short Term Goal (STG Dee is able to sustain a pelvic floor contraction in ) supine x 10 seconds goal met STG Duration 5 weeks Usp Goal (LTG) Dee is able to sustain a pelvic floor contraction in standing x 5 seconds good progress LTG Duration 8 weeks 1 Impairment pelvic floor weakness Usp Goal (LTG) Dee presents with overall improved strength of the pelvic floor and has improved recruitment of the anterior wall of the levator ani. good progress LTG Duration 8 weeks Assessment Summary Assessment Dee has not been seen since 08/16/24 and needed to cx her last appt due to scheduling conflict. I did speak with Dee over the phone and she notes that she is feeling she can discharge now to a I HEP and that she is feeling better overall with improved strength. At this point Dee will be discharged to a I HEP Physical Therapy Plan Discharge Physical Therapy Discharge Reasons Patient Request
== END 2024-09-26 07:49 | disposition home or self-care (01) ==
LOC: PHYS 11:30
PROVIDERS: Family Provider Family Medicine; PCP Family Medicine; Referring Provider Obstetrics & Gynecology; Visit Provider Obstetrics & Gynecology
DX: N81.89 Other female genital prolapse (principal); N81.84 Pelvic muscle wasting; R39.15 Urgency of urination
CPT/HCPCS: 97110; 97140; 97162; 97530; 97535